=== PATIENT | female | born 1940 | race Caucasian/White ===

== ENCOUNTER 2023-06-24 05:06 | Day surgery (SDC) | payer BC, OTHER ==
[2023-06-22 14:49] VITALS: BMI 23.0
[2023-06-24] MEDS ORDERED: LIDOCAINE HCL/PF 1% SDV 5ML VIAL ONE (07:36)
[2023-06-24] MEDS ORDERED: DEXAMETHASONE SOD PHOSPHATE 10 MG/1 ML VIAL ONE (07:36)
[2023-06-24 11:42] VITALS: RESP 18
[2023-06-24] MEDS ORDERED: ACETAMINOPHEN 500 MG TABLET (FP) PO PRN (11:58)
[2023-06-24] MEDS ORDERED: LIDOCAINE 1% P/F 10 MG/ML VIAL INF ONE (12:15)
[2023-06-24] MEDS ORDERED: DEXAMETHASONE SOD PHOSPHATE 20 MG/5 ML VIAL IVPUSH ONE (12:15)
[2023-06-24] MEDS ORDERED: IOHEXOL 180 MG/1 ML ML IJ ONE (12:15)
[2023-06-24 12:33] VITALS: BP 137/64; PULSE 60; TEMP 97
== END 2023-06-24 13:00 | disposition home or self-care (01) ==
LOC: JASU-SURG 05:06
PROVIDERS: ATTEND Pain Medicine Pain Medicine
PROC: 3E0R3BZ Introduction of Anesthetic Agent into Spinal Canal, Percutaneous Approach (ICD-10-PCS; 2023-06-24)
PROC: 3E0R33Z Introduction of Anti-inflammatory into Spinal Canal, Percutaneous Approach (ICD-10-PCS; principal; 2023-06-24 13:15)
DX: M48.061 Spinal stenosis, lumbar region without neurogenic claudication (principal); M54.16 Radiculopathy, lumbar region
CPT/HCPCS: 76000-TC-FY; J1100

== ENCOUNTER 2025-01-24 06:10 | Day surgery (SDC) | payer OTHER ==
[2025-01-24] MEDS ORDERED: BUPIVACAINE HCL/PF 0.5% (5MG/ML) 10 ML VIAL ONE (07:23)
[2025-01-24] MEDS ORDERED: BUPIVACAINE HCL/PF 0.75% 10 ML VIAL ONE (07:24)
[2025-01-24] MEDS ORDERED: ACETAMINOPHEN 500 MG TABLET (FP) PO PRN (09:14)
[2025-01-24 13:42] VITALS: BP 128/74; PULSE 95; RESP 20; TEMP 98
== END 2025-01-24 11:40 | disposition home or self-care (01) ==
LOC: JASU-SURG 06:10
PROVIDERS: ATTEND Pain Medicine Pain Medicine
PROC: 01HY3MZ Insertion of Neurostimulator Lead into Peripheral Nerve, Percutaneous Approach (ICD-10-PCS; principal; 2025-01-24 09:15)
DX: G89.4 Chronic pain syndrome (principal)
CPT/HCPCS: 64555; C1778

== ENCOUNTER 2025-02-22 06:02 | Day surgery (SDC) | payer OTHER ==
[2025-02-22] MEDS ORDERED: ACETAMINOPHEN 500 MG TABLET (FP) PO PRN (08:52)
[2025-02-22] MEDS: LIDOCAINE 1% P/F 10 MG/ML VIAL INF ONE (09:07)
[2025-02-22 09:30] VITALS: BP 152/71; PULSE 56; RESP 20; TEMP 98.4
== END 2025-02-22 09:56 | disposition home or self-care (01) ==
LOC: JASU-SURG 06:02
PROVIDERS: ATTEND Pain Medicine Pain Medicine
PROC: 01HY3MZ Insertion of Neurostimulator Lead into Peripheral Nerve, Percutaneous Approach (ICD-10-PCS; principal; 2025-02-22 08:39)
DX: G89.4 Chronic pain syndrome (principal)
CPT/HCPCS: 64555; C1778